=== PATIENT | female | born 1940 | race Caucasian/White ===

== ENCOUNTER 2018-03-22 12:59 | Inpatient (IN) ==
[2018-03-22] MEDS ORDERED: FUROSEMIDE 40 MG/4 ML VIAL IV ONE (13:31)
[2018-03-22 13:58] LABS: Basophils # (Auto) 0.1 K/mcL (0.0-0.3); Basophils % (Auto) 0.6 % (0.0-2.0); Eosinophils # (Auto) 0 K/mcL (0.0-0.7); Eosinophils % (Auto) 0.3 % (0.0-7.0); Granulocytes % (Auto) 82.3 % (38.0-78.0); Lymphocytes # (Auto) 1.2 K/mcL (1.5-4.8); Lymphocytes % (Auto) 11.7 % (15.5-49.0); Mean Cell Volume 86.3 fL (80.0-100.0); Mean Corpuscular HGB Conc 32.5 g/dL (31.0-36.0); Monocytes # (Auto) 0.5 K/mcL (0.1-0.9); Monocytes % (Auto) 5.1 % (1.0-12.0); Platelet Count 197 K/mcL (140-440); RBC 3.92 M/mcL (4.00-5.20); Red Cell Distribution Width 20.7 % (11.5-14.5)
[2018-03-22 14:22] LABS: ALT/SGPT 46 U/l (0-40); Albumin 4.1 gm/dL (3.2-5.2); Albumin/Globulin Ratio 1.9 (1.0-2.3); Alkaline Phosphatase 88 U/L (39-117); Blood Urea Nitrogen 48 mg/dl (8-23)
--- NOTE | 2018-03-22 14:34 | XRay Report ---
INDICATION: Dyspnea TECHNIQUE: PA and lateral upright chest x-ray COMPARISON: 12/19/2014, 12/17/2014, 01/22/2014 FINDINGS: Previous median sternotomy and probable coronary artery bypass procedure Mild cardiomegaly. Pulmonary vascularity is prominent consistent pulmonary congestion. No pulmonary edema. No parenchymal consolidation or focal abnormality. No pleural fluid. Bailee and mediastinum are negative. IMPRESSION: 1. Mild cardiomegaly 2. Findings consistent with pulmonary congestion. No pulmonary edema or focal infiltrate Interpreted and Authenticated by: Justin Jacobo 03/22/18
[2018-03-22] MEDS ORDERED: HYDROcodone/APAP 5/325MG TABLET PO ONE (14:56)
--- NOTE | 2018-03-22 15:08 | Emergency Department Note ---
SOB HPI - General Chief Complaint: Shortness of Breath/Dyspnea Stated Complaint: Shortness of breath, elevated potassium Time Seen by Provider: 03/22/18 13:14 Source: patient, family Mode of arrival: wheelchair Limitations: no limitations - History of Present Illness 77-year-old female with increasing swelling in her legs shortness of breath and weakness was seen at [facility] 5 days ago. They diagnosed her as having worsening heart failure by increased BNP and creatinine. They gave her steroids as well as increasing her furosemide. She has not gotten better but is decompensating worse. She reports diarrhea for the last 3-4 days. No fever. Apparently she had an appointment scheduled with Dr. Baumann later on today but Dr. Baumann sent her to the ER - Related Data Home Medications Medication Instructions Recorded Confirmed Montelukast [Singular] 10 mg PO HS 11/11/15 03/22/18 bupropion HCl SR 150 mg tablet,12 150 mg PO QDAY tab 04/06/17 03/22/18 hr sustained-release insulin lispro (U-100) 100 unit/mL See Label Instructions SUB-Q 04/07/17 subcutaneous solution .COMPLEX trazodone 50 mg tablet 50 mg PO HS tab 04/08/17 03/22/18 Insulin Glargine, Human [Lantus] 10 unit SQ BID 10/18/17 03/22/18 hydralazine 10 mg tablet 10 mg PO TID tab 10/18/17 03/22/18 hydrocodone 10 mg-acetaminophen 1 - 2 tab PO Q6HP PRN 10/18/17 03/22/18 325 mg tablet levothyroxine 25 mcg tablet 75 mcg PO QAMAC tab 10/18/17 03/22/18 pantoprazole 40 mg tablet,delayed 40 mg PO QAMAC 10/18/17 03/22/18 release polysaccharide iron complex 150 mg 150 mg PO BID cap 10/18/17 03/22/18 iron capsule carvedilol 3.125 mg tablet 6.25 mg PO BIDCC tab 01/19/18 03/22/18 Cetirizine [ZyrTEC] 10 mg PO DAILY 03/22/18 03/22/18 Furosemide [Lasix] 20 mg PO DAILY 03/22/18 03/22/18 Furosemide [Lasix] 40 mg PO DAILY@1600 03/22/18 03/22/18 Ipratropium/Albuterol [Duoneb] 3 ml NEB Q6HP PRN 03/22/18 03/22/18 Pregabalin [Lyrica] 75 mg PO HS 03/22/18 03/22/18 Vitamin D3 2,000 unit PO DAILY 03/22/18 03/22/18 Warfarin [Coumadin] 7.5 mg PO SUMOTUTHFRSA 03/22/18 03/22/18 Warfarin [Coumadin] 10 mg PO WE 03/22/18 03/22/18 predniSONE [Prednisone] 20 mg PO BID 03/22/18 03/22/18 Allergies Allergy/AdvReac Type Severity Reaction Status Date / Time GUIDO Inhibitors Allergy Severe Anaphylaxis Verified 03/22/18 13:05 valsartan [From DIOVAN] Allergy Severe TONGUE Verified 03/22/18 13:05 SWELLS Sulfa (Sulfonamide Allergy Mild Pain Verified 03/22/18 15:55 Antibiotics) morphine [MORPHINE] AdvReac Intermediate MAKES HER Verified 03/22/18 15:55 A LITTLE CRAZY Review of Systems All systems ED: reviewed and negative except as stated. Past Medical History - Past Medical History Attestation: Yes: The following information was validated with the patient. Medical history: Reports: atrial fibrillation, cancer (Renal), CHF, COPD, coronary artery disease, DM, GERD, hyperlipidemia, hypertension, renal disease, thyroid disease, other (Symptomatic hernia) Surgical history ED: Reports: appendectomy, cataract, coronary bypass (CABG), hysterectomy, knee replacement, orthopedic, other (Lumbar), other (eft kidney resection; partial colectomy for obstruction) - Social History smoking status: Former smoker Physical Exam No acute distress. Normocephalic atraumatic. Conjunctive are clear sclerae nonicteric. No nasal discharge or congestion. Oropharynx is pink and moist. Neck is supple without lymphadenopathy thyromegaly or carotid bruit. Heart is irregularly irregular rhythm. +2 radial pulse. Lungs are basically clear to auscultation bilaterally although she is short of breath with even mild exertion. I do not hear any wheezes rales or crackles. Abdomen is soft nontender nondistended. No peritoneal signs or guarding. +2 pedal edema tender. Worst on the left with mild erythema. Alert and oriented Limitations: no limitations Course Vital Signs Temperature 97.4 F 03/22/18 13:00 Pulse Rate 64 03/22/18 13:00 Respiratory Rate 22 03/22/18 13:00 Blood Pressure 193/95 03/22/18 13:00 Pulse Oximetry (%) 97 03/22/18 13:00 Temperature 97.2 F 03/23/18 03:24 Pulse Rate 56 L 03/23/18 03:24 Respiratory Rate 18 03/23/18 03:24 Blood Pressure 162/45 03/23/18 03:24 Pulse Oximetry (%) 96 03/23/18 03:24 Shortness of Breath/Dyspnea - Lab Data Lab results reviewed: Yes I reviewed the patient's lab results. Result diagrams: 03/23/18 03:30 03/23/18 03:30 Lab Results 03/22/18 03/22/18 03/22/18 Range/Units 13:26 13:26 13:26 WBC 10.0 (4.5-11.0) K/mcL RBC 3.92 L (4.00-5.20) M/mcL Hgb 11.0 L (12.0-15.0) g/dL Hct 33.8 L (36.0-48.0) % POC Hct 33.0 L (36.0-48.0) % MCV 86.3 (80.0-100.0) fL MCH 28.0 (26.0-34.0) pg MCHC 32.5 (31.0-36.0) g/dL RDW 20.7 H (11.5-14.5) % Plt Count 197 (140-440) K/mcL MPV 7.7 (7.4-10.4) fL Gran % 82.3 H (38.0-78.0) % Lymph % (Auto) 11.7 L (15.5-49.0) % [place] % (Auto) 5.1 (1.0-12.0) % Eos % (Auto) 0.3 (0.0-7.0) % Baso % (Auto) 0.6 (0.0-2.0) % Gran # 8.2 H (1.8-8.0) K/mcL Lymph # (Auto) 1.2 L (1.5-4.8) K/mcL [place] # (Auto) 0.5 (0.1-0.9) K/mcL Eos # (Auto) 0 (0.0-0.7) K/mcL Baso # (Auto) 0.1 (0.0-0.3) K/mcL PT 24.0 H (11.9-14.5) sec INR 2.1 H (0.9-1.1) VBG Lactic Acid (0.5-2.2) mmol/L POC Sodium 133 (133-145) mmol/L Sodium 134 (133-145) mmol/L POC Potassium 3.9 (3.3-5.1) mmol/L Potassium 4.2 (3.3-5.1) mmol/L POC Chloride 93 L (96-108) mmol/L Chloride 94 L (96-108) mmol/L Carbon Dioxide 25 (22-30) mmol/L POC Total CO2 28 (22-30) mmol/L Anion Gap 15.0 (8-16) POC BUN 47 H (8-23) mg/dl BUN 48 H (8-23) mg/dl Creatinine 1.4 H (0.6-1.1) mg/dl POC Creatinine 1.5 H (0.6-1.1) mg/dl GFR Calculation 36 Glucose 125 H (70-105) mg/dL POC Glucose 130 H (70-105) mg/dL Calcium 9.2 (8.6-10.4) mg/dl POC WB Ioniz Calcium 1.20 (1.16-1.32) mmol/L Magnesium (1.6-2.5) mg/dL Total Bilirubin 0.5 (0.0-1.0) mg/dL AST 34 (0-37) U/l ALT 46 H (0-40) U/l Alkaline Phosphatase 88 (39-117) U/L Troponin T (0-0.03) ng/ml NT-Pro-B Natriuret Pep (0-450) pg/ml Total Protein 6.3 (5.9-8.4) gm/dL Albumin 4.1 (3.2-5.2) gm/dL Globulin 2.2 (2.2-3.7) gm/dL Albumin/Globulin Ratio 1.9 (1.0-2.3) 03/22/18 03/22/18 03/22/18 Range/Units 13:26 13:26 13:44 WBC (4.5-11.0) K/mcL RBC (4.00-5.20) M/mcL Hgb (12.0-15.0) g/dL Hct (36.0-48.0) % POC Hct (36.0-48.0) % MCV (80.0-100.0) fL MCH (26.0-34.0) pg MCHC (31.0-36.0) g/dL RDW (11.5-14.5) % Plt Count (140-440) K/mcL MPV (7.4-10.4) fL Gran % (38.0-78.0) % Lymph % (Auto) (15.5-49.0) % [place] % (Auto) (1.0-12.0) % Eos % (Auto) (0.0-7.0) % Baso % (Auto) (0.0-2.0) % Gran # (1.8-8.0) K/mcL Lymph # (Auto) (1.5-4.8) K/mcL [place] # (Auto) (0.1-0.9) K/mcL Eos # (Auto) (0.0-0.7) K/mcL Baso # (Auto) (0.0-0.3) K/mcL PT (11.9-14.5) sec INR (0.9-1.1) VBG Lactic Acid 0.9 (0.5-2.2) mmol/L POC Sodium (133-145) mmol/L Sodium (133-145) mmol/L POC Potassium (3.3-5.1) mmol/L Potassium (3.3-5.1) mmol/L POC Chloride (96-108) mmol/L Chloride (96-108) mmol/L Carbon Dioxide (22-30) mmol/L POC Total CO2 (22-30) mmol/L Anion Gap (8-16) POC BUN (8-23) mg/dl BUN (8-23) mg/dl Creatinine (0.6-1.1) mg/dl POC Creatinine (0.6-1.1) mg/dl GFR Calculation Glucose (70-105) mg/dL POC Glucose (70-105) mg/dL Calcium (8.6-10.4) mg/dl POC WB Ioniz Calcium (1.16-1.32) mmol/L Magnesium 1.8 (1.6-2.5) mg/dL Total Bilirubin (0.0-1.0) mg/dL AST (0-37) U/l ALT (0-40) U/l Alkaline Phosphatase (39-117) U/L Troponin T 0.02 (0-0.03) ng/ml NT-Pro-B Natriuret Pep 28263.0 H (0-450) pg/ml Total Protein (5.9-8.4) gm/dL Albumin (3.2-5.2) gm/dL Globulin (2.2-3.7) gm/dL Albumin/Globulin Ratio (1.0-2.3) ABG shows pH 7.45 PCO2 44 PO2 of 71 Urinalysis [id number]-[id number] dipstick shows large amount of leukocytes moderate amount of blood specific gravity 1.005 - Radiology Data Radiology results reviewed: Yes I reviewed the patient's radiology results. Chest x-ray shows pulmonary vascular congestion - EKG Data EKG attestation: Yes I reviewed and interpreted this EKG. EKG results narrative: EKG shows atrial fibrillation with a rate of 76 right bundle branch block Disposition Pt seen by EMPLOYEE BENEFITS COORDINATOR/PA only: No Clinical Impression: Chronic atrial fibrillation Congestive heart failure Qualifiers: Heart failure type: unspecified Heart failure chronicity: acute on chronic Qualified Code(s): I50.9 - Heart failure, unspecified Summary: After initial workup it seems patient has symptomatic acute on chronic heart failure, decompensating. She has increased swelling in her legs, dyspnea on exertion, chest x-ray with pulmonary vascular congestion and her BNP is doubled. She is given an additional furosemide here in the ER. Suero not placed secondary to being able to get up for bedside commode. I discussed case with Dr. Campbell hospitalist, who agreed to accept patient in transfer for further care. She was also given her home hydrocodone dose for leg pain from the distention Disposition: Xfer As Inpt ([facility]) Condition: Serious
[2018-03-22] MEDS ORDERED: ACETAMINOPHEN 325 MG TABLET PO PRN (15:44)
[2018-03-22] MEDS ORDERED: MAGNESIUM SULFATE 2 GM/50 ML BAG IV PRN (15:44)
[2018-03-22] MEDS ORDERED: ONDANSETRON 4 MG/2 ML VIAL IV PRN (15:44)
[2018-03-22] MEDS ORDERED: DEXTROSE 31 GM ORAL.SUSP PO PRN (15:44)
[2018-03-22] MEDS ORDERED: DEXTROSE 50% 50 ML VIAL IV PRN (15:44)
[2018-03-22] MEDS ORDERED: traZODone HCL 50 MG TABLET PO PRN (15:44)
[2018-03-22] MEDS ORDERED: HYDROcodone/APAP 10/325MG TABLET PO PRN (15:44)
[2018-03-22] MEDS: ACETAMINOPHEN 1,000 MG/100 ML BOTTLE IV PRN (16:35)
[2018-03-22] MEDS: predniSONE 10 MG TABLET PO SCH (16:38)
[2018-03-22] MEDS: INSULIN LISPRO 1 UNIT/0.01 ML UNIT SQ SCH ×2 (17:22→21:04)
[2018-03-22] MEDS ORDERED: CARVEDILOL 6.25 MG TABLET PO SCH (17:30)
--- NOTE | 2018-03-22 17:55 | Internal Med History&Physical ---
Medical - H&P: [facility] Patient information: Note initiated : 03/22/18 at 5:48 pm Service Date, if different from initiated Date: [] Patient: Ольга Hernandez a 77 y/o F admitted on 03/22/18 for Shortness of breath , elevated potassium. Chief Complaint: [] Chief complaint: SOB History of present illness: Ms. Hernandez is a 77 year old F with a history of CKD, CAD status post CABG, CHF, COPD and active smoker who stopped smoking 5 days ago now presents to the ER with worsening dyspnea along with lower extremity swelling that has progressed to orthopnea along with difficulty ambulation over the last 1 week. Patient has a history of chronic lower extremity lymphedema and has been on Lasix. Despite being on diuretics has gained approximately 12-15 pounds in the last couple of weeks. She endorses to swelling has extended all the way up to her abdomen with increasing girth along with dyspnea on minimal exertion. She denies using [id number] NSAIDs or excessive salt intake. She denies recent sick contact, fever, diarrhea, nausea, chest pain or vomiting. She has attempted lower extremity stockings and compressive wraps which provided minimal relief. She also complains of bilateral lower extremity cramping pain. Initial workup in the ER was significant for pulmonary congestion on chest imaging along with generalized edema. Patient received Lasix and subsequently hospitalist service consulted. Patient carries a history of atrial fibrillation but currently rate controlled with right bundle branch on EKG. Echocardiogram reviewed from 02/14/18 revealed normal systolic function with concentric LVH, tricuspid regurgitation and moderate pulmonary hypertension. At the time of evaluation patient is in moderate discomfort. Able to talk in near full sentences. She endorses to history as above. Review of systems A 10 point review of systems was performed and is negative except for ones discussed above Medical - H&P: [facility] Medical history: Medical History (Last Reviewed 04/08/17 @ 10:46 by Carolyne Baumann MD) Persistent proteinuria (Chronic) Hyponatremia with decreased serum osmolality (Chronic) Secondary hyperparathyroidism of renal origin (Chronic) Vitamin D deficiency (Chronic) Anemia in stage 3 chronic kidney disease (Chronic) Hypertension in stage 3 chronic kidney disease due to type 2 diabetes mellitus ( Chronic) Renal failure (Chronic) Peripheral neuropathy (Chronic) Osteoarthritis (Chronic) Lumbar radiculopathy (Chronic) Hypertension (Chronic) Hyperlipidemia (Chronic) COPD exacerbation (Chronic) GERD (gastroesophageal reflux disease) (Chronic) Hip pain, bilateral (Chronic) Elevated erythrocyte sedimentation rate (Chronic) Hernia, umbilical (Chronic) Knee pain, bilateral (Chronic) correction prescription opiate use (Chronic) Murmur (Chronic) Bradycardia (Chronic) Lower extremity pain (Chronic) Urinary frequency (Chronic) Chronic depression (Chronic) Urge incontinence (Chronic) Abnormal findings on diagnostic imaging of lung (Chronic) Other specified hypothyroidism (Chronic) Pain of right hip joint (Chronic) Skin tear (Chronic) Hypertensive heart and chronic kidney disease with heart failure and stage 1 through stage 4 chronic kidney disease, or chronic kidney disease (Chronic) Psoriasis (Chronic) Chronic diastolic heart failure (Chronic) Edema of soft tissue of ankle region (Chronic) Varicose veins of both lower extremities (Chronic) Tobacco use (Chronic) Iron deficiency anemia (Chronic) Arthritis (Chronic) Chronic atrial fibrillation (Chronic) History of Coumadin therapy (Chronic) CAD (coronary artery disease) (Chronic) Idiopathic osteoarthritis (Chronic) Diabetic peripheral neuropathy (Chronic) Dystrophia unguium (Chronic) PVD (peripheral vascular disease) with claudication (Chronic) DM (diabetes mellitus), 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) Diabetes mellitus with peripheral circulatory disorder (Chronic) Chronic kidney disease, stage III (moderate) (Chronic) Hyponatremia (Chronic) Urinary tract infection (Chronic) Weakness (Chronic) Melena (Chronic) Anemia (Chronic) History of open heart surgery (Chronic ~1992) Mass of joint of left hip (Chronic) Surgical history: Past Surgical History (Last Reviewed 04/08/17 @ 10:46 by Carolyne Baumann MD) History of appendectomy (Chronic) History of cataract surgery (Chronic) History of cholecystectomy (Chronic) History of hysterectomy (Chronic) History of knee surgery (Chronic) History of lumbar surgery (Chronic) History of nephrectomy (Chronic) History of surgery (Chronic ~1994) History of surgery (Chronic) History of surgery (Chronic) Pertinent family history: Family History (Last Reviewed 04/08/17 @ 10:46 by Carolyne Baumann MD) Mother Diabetes Father Melanoma Social history: marital status: occupational status: retired smoking status: Current every day smoker. Quit smoking 5 days ago alcohol intake frequency: does not drink substance use type: does not use Smoking status: Current every day smoker (stop smoking 5 days ago) Have you smoked in the last 12 months: Yes Medical - H&P: Meds Home Medications Medication Instructions Recorded Confirmed Type Montelukast [Singular] 10 mg PO HS 11/11/15 03/22/18 History bupropion HCl SR 150 mg tablet,12 150 mg PO QDAY tab 04/06/17 03/22/18 History hr sustained-release insulin lispro (U-100) 100 unit/mL See Label Instructions SUB-Q 04/07/17 History subcutaneous solution .COMPLEX trazodone 50 mg tablet 50 mg PO HS tab 04/08/17 03/22/18 History Insulin Glargine, Human [Lantus] 10 unit SQ BID 10/18/17 03/22/18 History hydralazine 10 mg tablet 10 mg PO TID tab 10/18/17 03/22/18 History hydrocodone 10 mg-acetaminophen 1 - 2 tab PO Q6HP PRN 10/18/17 03/22/18 History 325 mg tablet levothyroxine 25 mcg tablet 75 mcg PO QAMAC tab 10/18/17 03/22/18 History pantoprazole 40 mg tablet,delayed 40 mg PO QAMAC 10/18/17 03/22/18 History release polysaccharide iron complex 150 mg 150 mg PO BID cap 10/18/17 03/22/18 History iron capsule carvedilol 3.125 mg tablet 6.25 mg PO BIDCC tab 01/19/18 03/22/18 History Cetirizine [ZyrTEC] 10 mg PO DAILY 03/22/18 03/22/18 History Furosemide [Lasix] 20 mg PO DAILY 03/22/18 03/22/18 History Furosemide [Lasix] 40 mg PO DAILY@1600 03/22/18 03/22/18 History Ipratropium/Albuterol [Duoneb] 3 ml NEB Q6HP PRN 03/22/18 03/22/18 History Pregabalin [Lyrica] 75 mg PO HS 03/22/18 03/22/18 History Vitamin D3 2,000 unit PO DAILY 03/22/18 03/22/18 History Warfarin [Coumadin] 7.5 mg PO SUMOTUTHFRSA 03/22/18 03/22/18 History Warfarin [Coumadin] 10 mg PO WE 03/22/18 03/22/18 History predniSONE [Prednisone] 20 mg PO BID 03/22/18 03/22/18 History Allergies Allergy/AdvReac Type Severity Reaction Status Date / Time GUIDO Inhibitors Allergy Severe Anaphylaxis Verified 03/22/18 13:05 valsartan [From DIOVAN] Allergy Severe TONGUE Verified 03/22/18 13:05 SWELLS Sulfa (Sulfonamide Allergy Mild Pain Verified 03/22/18 15:55 Antibiotics) morphine [MORPHINE] AdvReac Intermediate MAKES HER Verified 03/22/18 15:55 A LITTLE CRAZY Medical - H&P: Exam - Constitutional Vitals: Temp Pulse Resp BP Pulse Ox 97.4 F 54 L 21 183/65 98 03/22/18 15:54 03/22/18 15:54 03/22/18 15:54 03/22/18 15:54 03/22/18 15:54 General appearance: moderate distress, obese Exam: Alert oriented labored breathing oral cavity dry head normocephalic Neck no lymphadenopathy Eye movements normal S1 and S2 irregular rhythm ESM grade 1 Late inspiratory crackles bilateral chest Abdomen soft nontender Lower extremity bilateral lymphedema Calf tenderness positive Skin no suspicious lesion Joint degenerative changes Psych alert cooperative Neuro nonfocal Medical - H&P: Reslt - Labs CBC & Chem 7: 03/23/18 03:30 03/23/18 03:30 Labs: Short CBC 03/22/18 Range/Units 13:26 WBC 10.0 (4.5-11.0) K/mcL Hgb 11.0 L (12.0-15.0) g/dL Hct 33.8 L (36.0-48.0) % Plt Count 197 (140-440) K/mcL BMP 03/22/18 13:26 Sodium 134 Potassium 4.2 Chloride 94 L Carbon Dioxide 25 BUN 48 H Creatinine 1.4 H Glucose 125 H Calcium 9.2 Cardiac Enzymes 03/22/18 Range/Units 13:26 Troponin T 0.02 (0-0.03) ng/ml Liver Function 03/22/18 Range/Units 13:26 Total Bilirubin 0.5 (0.0-1.0) mg/dL AST 34 (0-37) U/l ALT 46 H (0-40) U/l Alkaline Phosphatase 88 (39-117) U/L Albumin 4.1 (3.2-5.2) gm/dL Medical - H&P: A/P (1) Congestive heart failure Current visit: Yes Status: Acute * Acute decompensated heart failure diastolic dysfunction with concentric LVH on echo. Pulmonary edema on chest imaging. Secondary to poorly controlled hypertension. Continue diuretics and blood pressure control * Lower extremity lymphedema secondary to pulmonary hypertension-continue diuresis, limb elevation, compressive wraps * Poorly controlled hypertension-continue antihypertensives, optimize blood pressure management * History of COPD secondary to smoking-continue bronchodilators * History smoking-recently quit. Continue nicotine patch * Atrial fibrillation rate controlled on Coreg * DM type II on basal prandial insulin * Anticoagulation on Coumadin. INR therapeutic * Degenerative joint disease on oral opioids * History of CAD on Coreg/spironolactone and hydralazine * Anxiety disorder on bupropion * Hypothyroidism on thyroxine * Neuropathy on Lyrica * Full code Plan * Continue aggressive diuresis * Optimize blood pressure control * Nicotine patch * Pre-existing medical condition management as above * Physical therapy Medical - H&P: Qual - Stroke Symptom Onset Unknown: No - VTE Deep Vein Thrombosis/Pulmonary Embolism Present on Admission: No
[2018-03-22] MEDS ORDERED: HYDROcodone/APAP 10/325MG TABLET PO ONE (19:16)
[2018-03-22] MEDS: INSULIN GLARGINE, HUMAN 1 UNIT/0.01 ML SQ SCH (21:04)
[2018-03-22] MEDS: traZODone HCL 50 MG TABLET PO SCH (21:05)
[2018-03-22] MEDS: DOCUSATE SODIUM 100 MG CAPSULE PO SCH (21:05)
[2018-03-22] MEDS: PREGABALIN 75 MG CAPSULE PO SCH (21:05)
[2018-03-22] MEDS: hydrALAZINE 10 MG TABLET PO SCH (21:05)
[2018-03-22] MEDS: SENNOSIDES/DOCUSATE SODIUM 1 TAB TABLET PO SCH (21:05)
[2018-03-22] MEDS: CARVEDILOL 6.25 MG TABLET PO SCH (21:06)
[2018-03-22] MEDS: MONTELUKAST 10 MG TABLET PO SCH (21:34)
[2018-03-22] MEDS: FUROSEMIDE 40 MG/4 ML VIAL IV SCH (21:48)
[2018-03-22] MEDS: 0.9 % SODIUM CHLORIDE 10 ML SYRINGE IV SCH (21:49)
[2018-03-22 22:55] LABS: Appearance,Urine HAZY; Bacteria,Urine FEW /hpf (0); Bilirubin,Urine NEG (NEG); Color,Urine YELLOW; Glucose,Urine (UA) NEGATIVE (NEG); Leukocyte Esterase,Urine 75 /uL (NEG); Mucus,Urine FEW /hpf (0); Protein,Urine 100 mg/dL (NEG); Specific Gravity,Urine 1.009 (1.000-1.035); Urine Blood 0.03 mg/dL (<0.03); Urine RBC 2 /hpf (0-1); Urine Squamous Epithelial Cell 2 /hpf (0-4); Urine WBC 12 /hpf (0-4); Urobilinogen,Urine NEG (NEG)
[2018-03-22] MEDS: HYDROcodone/APAP 10/325MG TABLET PO PRN (23:20)
[2018-03-22] MEDS ORDERED: IPRATROPIUM/ALBUTEROL 3 ML AMPUL.NEB NEB PRN (23:55)
[2018-03-22] MEDS ORDERED: IPRATROPIUM/ALBUTEROL 3 ML AMPUL.NEB NEB ONE (23:59)
[2018-03-23] MEDS: ACETAMINOPHEN 1,000 MG/100 ML BOTTLE IV PRN (02:30)
[2018-03-23] MEDS: HYDROcodone/APAP 10/325MG TABLET PO PRN ×3 (03:10→17:48)
[2018-03-23 05:30] LABS: Mean Cell Volume 87.5 fL (80.0-100.0); Mean Corpuscular HGB Conc 31.8 g/dL (31.0-36.0); Mean Corpuscular Hemoglobin 27.9 pg (26.0-34.0); Platelet Count 184 K/mcL (140-440); Red Cell Distribution Width 20.6 % (11.5-14.5)
[2018-03-23] MEDS: FUROSEMIDE 40 MG/4 ML VIAL IV SCH ×3 (05:42→21:16)
[2018-03-23] MEDS: 0.9 % SODIUM CHLORIDE 10 ML SYRINGE IV SCH ×3 (05:42→21:16)
[2018-03-23 05:54] LABS: ALT/SGPT 38 U/l (0-40); Albumin 3.8 gm/dL (3.2-5.2); Albumin/Globulin Ratio 1.9 (1.0-2.3); Alkaline Phosphatase 79 U/L (39-117); Bilirubin,Direct < 0.2 mg/dL (0.0-0.3); Blood Urea Nitrogen 47 mg/dl (8-23); Gamma Glutamyl Transpeptidase 86 U/L (5-36); Uric Acid 9.4 mg/dL (2.5-8.0)
[2018-03-23 07:24] LABS: Anisocytosis 1+ (NONE SEEN); Lymphocytes % 11 % (15-49); Monocytes % (Manual) 7 % (1-12); Platelet Estimate NORMAL (NORMAL); RBC Morphology ABNORM (NORMAL); Segmented Neutrophils % 82 % (38-78)
[2018-03-23] MEDS: INSULIN LISPRO 1 UNIT/0.01 ML UNIT SQ SCH ×4 (07:26→21:15)
[2018-03-23] MEDS: PANTOPRAZOLE 40 MG TABLET PO SCH (07:27)
[2018-03-23] MEDS: CARVEDILOL 6.25 MG TABLET PO SCH ×2 (07:27→17:20)
[2018-03-23] MEDS: predniSONE 10 MG TABLET PO SCH ×2 (07:27→17:20)
[2018-03-23] MEDS: LEVOTHYROXINE 25 MCG TABLET PO SCH (07:27)
[2018-03-23] MEDS: buPROPion 150 MG TAB.SR.12H PO SCH (09:21)
[2018-03-23] MEDS: hydrALAZINE 10 MG TABLET PO SCH ×3 (09:21→21:03)
[2018-03-23] MEDS: INSULIN GLARGINE, HUMAN 1 UNIT/0.01 ML SQ SCH ×2 (09:21→21:15)
[2018-03-23] MEDS: TAMSULOSIN 0.4 MG CAPSULE PO SCH (09:21)
[2018-03-23] MEDS: MAGNESIUM OXIDE 400 MG TABLET PO SCH (09:21)
[2018-03-23] MEDS: DOCUSATE SODIUM 100 MG CAPSULE PO SCH ×2 (09:21→21:03)
[2018-03-23] MEDS: MULTIVIT,THER IRON,CA,FA & MIN 1 TABLET PO SCH (09:21)
--- NOTE | 2018-03-23 09:47 | Ultrasound Report ---
CLINICAL INFORMATION: Left leg pain and swelling TECHNIQUE: Grayscale and color flow Doppler spectral imaging COMPARISON: None. FINDINGS: There is an appearance consistent with chronic clot in the mid left superficial femoral vein. This does not appear to be completely obstructing. There is normal flow caudally and cephalad. Proximal left superficial femoral vein and distal left superficial femoral vein are negative. Left common femoral vein is negative. Left popliteal vein is negative. Calf veins are negative. Greater and lesser saphenous veins are negative. IMPRESSION: 1. Appearance consistent with chronic clot in the left mid superficial femoral vein. 2. Examination is otherwise negative Interpreted and Authenticated by: Justin Jacobo 03/23/18
[2018-03-23] MEDS ORDERED: NICOTINE 21 MG PATCH TOPICAL SCH (10:00)
--- NOTE | 2018-03-23 13:58 | Internal Med Progress Note ---
Medical - PN: Subj Patient information: Note initiated : 03/23/18 at 1:56 pm Service Date, if different from initiated Date: [] Patient: Ольга Hernandez a 77 y/o F admitted on 03/22/18 for SOB, Elevated Potassium/Congestive Heart Failure. Chief Complaint: [] Interval history: Ms. Hernandez is a 77 year old F with a history of CKD, CAD status post CABG, CHF, COPD and active smoker who stopped smoking 5 days ago now presents to the ER with worsening dyspnea along with lower extremity swelling that has progressed to orthopnea along with difficulty ambulation over the last 1 week. Patient has a history of chronic lower extremity lymphedema and has been on Lasix. Despite being on diuretics has gained approximately 12-15 pounds in the last couple of weeks. She endorses to swelling has extended all the way up to her abdomen with increasing girth along with dyspnea on minimal exertion. She denies using [id number] NSAIDs or excessive salt intake. She denies recent sick contact, fever, diarrhea, nausea, chest pain or vomiting. She has attempted lower extremity stockings and compressive wraps which provided minimal relief. She also complains of bilateral lower extremity cramping pain. Initial workup in the ER was significant for pulmonary congestion on chest imaging along with generalized edema. Patient received Lasix and subsequently hospitalist service consulted. Patient carries a history of atrial fibrillation but currently rate controlled with right bundle branch on EKG. Echocardiogram reviewed from 02/14/18 revealed normal systolic function with concentric LVH, tricuspid regurgitation and moderate pulmonary hypertension. At the time of evaluation patient is in moderate discomfort. Able to talk in near full sentences. She endorses to history as above. 03/23- patient doing well. No overnight events. No concerns per staff except for patient complaining of lower extremity pain. Doppler lower extremity consistent with chronic clot in left superficial femoral vein. On anticoagulation. INR therapeutic. No fever chills nausea vomiting. Diuresing well. Over 2500 cc net negative fluid balance. Improved dyspnea. - Constitutional Vitals: Vital Signs Temp Pulse Resp BP Pulse Ox 98.2 F 72 20 118/46 97 03/23/18 12:00 03/23/18 12:00 03/23/18 12:00 03/23/18 12:00 03/23/18 12:00 Period Temp Pulse Resp BP Sys/Marinelli Pulse Ox Last 24 Hr 97.2 F-98.8 F 54-85 18-25 118-192/45-80 95-99 Intake and Output 03/22/18 03/23/18 03/23/18 21:59 05:59 13:59 Intake Total 460 / 460 460 / 460 480 / 480 Output Total 650 / 650 1650 / 1650 800 / 800 Balance -190 / -190 -1190 / -1190 -320 / -320 Weight 193 lb 8 oz 193 lb 8 oz Intake & Output: Intake & Output 03/22/18 03/23/18 03/23/18 21:59 05:59 13:59 Intake Total 460 / 460 460 / 460 480 / 480 Output Total 650 / 650 1650 / 1650 800 / 800 Balance -190 / -190 -1190 / -1190 -320 / -320 Weight 193 lb 8 oz 193 lb 8 oz Intake: IV 100 / 100 100 / 100 Oral 360 / 360 360 / 360 480 / 480 Output: Void Amount 650 / 650 1650 / 1650 800 / 800 Other: Meal Sandwhich sherbert Breakfast Percent of Meal Consumed 100% 100% Feeding Ability Independent Independent # Voids 1 1 General appearance: no acute distress, obese Exam: Nonlabored breathing no anxiety Alert oriented Lymphedema much improved Medical - PN: Obj Da - Labs CBC & Chem 7: 03/23/18 03:30 03/23/18 03:30 Labs: Abnormal Lab Results 03/23/18 03/23/18 03/23/18 03:30 03:30 03:30 RBC 3.60 L Hgb 10.0 L Hct 31.5 L POC Hct RDW 20.6 H Gran % Lymph % (Auto) Gran # Lymph # (Auto) Seg Neutrophils % 82 H Lymphocytes % 11 L RBC Morphology Abnorm A Anisocytosis 1+ A PT 24.9 H INR 2.2 H Sodium 132 L POC Chloride Chloride 91 L POC BUN BUN 47 H Creatinine 1.3 H POC Creatinine Glucose 280 H POC Glucose Uric Acid 9.4 H GGT 86 H ALT Lactate Dehydrogenase 285 H NT-Pro-B Natriuret Pep Total Protein 5.8 L Globulin 2.0 L Urine Protein Urine Occult Blood Ur Leukocyte Esterase Urine RBC Urine WBC Urine Bacteria 03/22/18 03/22/18 03/22/18 16:00 13:26 13:26 RBC Hgb Hct POC Hct RDW Gran % Lymph % (Auto) Gran # Lymph # (Auto) Seg Neutrophils % Lymphocytes % RBC Morphology Anisocytosis PT 24.0 H INR 2.1 H Sodium POC Chloride Chloride POC BUN BUN Creatinine POC Creatinine Glucose POC Glucose Uric Acid GGT ALT Lactate Dehydrogenase NT-Pro-B Natriuret Pep 43382.0 H Total Protein Globulin Urine Protein 100 A Urine Occult Blood 0.03 A Ur Leukocyte Esterase 75 A Urine RBC 2 H Urine WBC 12 H Urine Bacteria Few A 03/22/18 03/22/18 13:26 13:26 RBC 3.92 L Hgb 11.0 L Hct 33.8 L POC Hct 33.0 L RDW 20.7 H Gran % 82.3 H Lymph % (Auto) 11.7 L Gran # 8.2 H Lymph # (Auto) 1.2 L Seg Neutrophils % Lymphocytes % RBC Morphology Anisocytosis PT INR Sodium POC Chloride 93 L Chloride 94 L POC BUN 47 H BUN 48 H Creatinine 1.4 H POC Creatinine 1.5 H Glucose 125 H POC Glucose 130 H Uric Acid GGT ALT 46 H Lactate Dehydrogenase NT-Pro-B Natriuret Pep Total Protein Globulin Urine Protein Urine Occult Blood Ur Leukocyte Esterase Urine RBC Urine WBC Urine Bacteria Meds: Medications Acetaminophen (Tylenol) 650 mg PO Q4-6HP PRN PRN Reason: PAIN/FEVER > 101 Hydrocodone Bitart/Acetaminophen (Rush 10/325mg) 2 tab PO Q4-6HP PRN PRN Reason: PAIN LEVEL 3-6 Last Admin: 03/23/18 11:27 Dose: 2 tab Albuterol/Ipratropium (Duoneb) 3 ml NEB Q6HP PRN PRN Reason: Shortness Of Breath Bupropion HCl (Wellbutrin Sr) 150 mg PO QDAY [facility] Last Admin: 03/23/18 09:21 Dose: 150 mg Carvedilol (Coreg) 12.5 mg PO BIDCC [facility] Last Admin: 03/23/18 07:27 Dose: 12.5 mg Dextrose (Dextrose 50%) 0 ml IV UD PRN PRN Reason: Hypoglycemia Diagnostic Test (Pha) (Accu-Chek) 1 each FS ACHS [facility] Last Admin: 03/23/18 11:30 Dose: 1 each Docusate Sodium (Colace) 100 mg PO BID [facility] Last Admin: 03/23/18 09:21 Dose: 100 mg Furosemide (Lasix) 40 mg IV Q8 [facility] Last Admin: 03/23/18 05:42 Dose: 40 mg Glucose (Insta-Glucose) 15 gm PO PRN PRN PRN Reason: Hypoglycemia Hydralazine HCl (Apresoline) 10 mg PO TID [facility] Last Admin: 03/23/18 09:21 Dose: 10 mg Magnesium Sulfate (Magnesium Sulfate) 2 gm in 50 mls @ 50 mls/hr IV UD PRN PRN Reason: MG = or < 1.7 Acetaminophen (Ofirmev) 1,000 mg in 100 mls @ 200 mls/hr IV Q6HP PRN PRN Reason: PAIN/FEVER > 101 Last Infusion: 03/23/18 05:02 Dose: Infused Insulin Glargine (Lantus) 10 unit SQ BID [facility] Last Admin: 03/23/18 09:21 Dose: 10 unit Insulin Human Lispro (Humalog) 0 unit SQ ACHS [facility] PRN Reason: Protocol Last Admin: 03/23/18 11:34 Dose: 2 unit Iron Carb/Multivit/Courtroom Reporter/Folic Acid (Multivitamin W/Minerals) 1 tab PO DAILY [facility] Last Admin: 03/23/18 09:21 Dose: 1 tab [facility]othyroxine [facility]) [facility] Last Admin: 03/23/18 07:27 Dose: 75 mcg Magnesium Oxide (Magnesium Oxide) 400 mg PO DAILY [facility] Last Admin: 03/23/18 09:21 Dose: 400 mg Montelukast Sodium (Singular) 10 mg PO [facility] Last Admin: 03/22/18 21:34 Dose: 10 mg Nicotine (Nicoderm) 21 mg TOPICAL DAILY@1000 [facility] Last Admin: 03/23/18 09:21 Dose: 21 mg Ondansetron HCl (Zofran) 4 mg IV Q4-6HP PRN PRN Reason: Nausea And Vomiting Pantoprazole Sodium (Protonix) 40 mg PO QAMAC [facility] Last Admin: 03/23/18 07:27 Dose: 40 mg Prednisone (Prednisone) 10 mg PO BIDCC [facility] Last Admin: 03/23/18 07:27 Dose: 10 mg Pregabalin (Lyrica) 75 mg PO [facility] Last Admin: 03/22/18 21:05 Dose: 75 mg Senna/Docusate Sodium (Senna Plus Tablet) 1 tab PO [facility] Last Admin: 03/22/18 21:05 Dose: 1 tab Sodium Chloride (Saline Flush) 10 ml IV Q8 [facility] Last Admin: 03/23/18 05:42 Dose: 10 ml Tamsulosin HCl (Flomax) 0.4 mg PO QDAY [facility] Last Admin: 03/23/18 09:21 Dose: 0.4 mg Trazodone HCl (Desyrel) 50 mg PO HS [facility] Last Admin: 03/22/18 21:05 Dose: 50 mg Warfarin Sodium (Coumadin Per Pharmacy) 1 order PO UD [facility] Medical - PN: A/P - Time Spent With Patient Total time spent is greater than 50% in coordination of care (as documented) at patient's floor/unit and/or counseling patient: 25 - 35 minutes (1) Congestive heart failure Status: Acute Assessment and plan: * Acute decompensated heart failure with pulmonary edema- diastolic dysfunction with concentric LVH on echo 02/15/18. Clinically improving with diuresis and blood pressure control. * Lower extremity lymphedema secondary to pulmonary hypertension-improving with diuresis * Poorly controlled hypertension -systolic around 120. Continue antihypertensives. * History of COPD secondary to lifelong smoking continue bronchodilators * Superficial femoral vein thrombosis-on anticoagulation * History of tobacco dependence -Continue nicotine patch. Patient quit smoking 5 days ago * Atrial fibrillation rate controlled on Coreg * DM type II on basal prandial insulin * Anticoagulation on Coumadin. INR 2.1 * Degenerative joint disease -pain controlled on oral opioids * History of CAD on Coreg/spironolactone and hydralazine * Anxiety disorder on bupropion * Hypothyroidism on thyroxine * Neuropathy on Lyrica * Full code Plan * Continue diuresis * Physical therapy * Nicotine patch * Continue pre-existing medical condition management as above * Possible discharge in 24 hours Current Visit: Yes Medical - PN: Qual - Stroke Symptom Onset Unknown: No - VTE Deep Vein Thrombosis/Pulmonary Embolism Present on Admission: No
[2018-03-23] MEDS ORDERED: WARFARIN 5 MG TABLET PO SCH (15:00)
[2018-03-23] MEDS: PREGABALIN 75 MG CAPSULE PO SCH (21:03)
[2018-03-23] MEDS: traZODone HCL 50 MG TABLET PO SCH (21:03)
[2018-03-23] MEDS: MONTELUKAST 10 MG TABLET PO SCH (21:03)
[2018-03-23] MEDS: SENNOSIDES/DOCUSATE SODIUM 1 TAB TABLET PO SCH (21:03)
[2018-03-24] MEDS: HYDROcodone/APAP 10/325MG TABLET PO PRN (01:30)
[2018-03-24] MEDS: FUROSEMIDE 40 MG/4 ML VIAL IV SCH (05:29)
[2018-03-24] MEDS: 0.9 % SODIUM CHLORIDE 10 ML SYRINGE IV SCH (05:30)
[2018-03-24 06:13] LABS: ALT/SGPT 32 U/l (0-40); Albumin 3.8 gm/dL (3.2-5.2); Albumin/Globulin Ratio 1.7 (1.0-2.3); Alkaline Phosphatase 79 U/L (39-117); Bilirubin,Direct < 0.2 mg/dL (0.0-0.3); Blood Urea Nitrogen 52 mg/dl (8-23); Gamma Glutamyl Transpeptidase 93 U/L (5-36); Uric Acid 9.6 mg/dL (2.5-8.0)
[2018-03-24 06:19] LABS: Mean Cell Volume 86.6 fL (80.0-100.0); Mean Corpuscular HGB Conc 32.3 g/dL (31.0-36.0); Platelet Count 179 K/mcL (140-440); RBC 3.85 M/mcL (4.00-5.20); Red Cell Distribution Width 20.6 % (11.5-14.5)
--- NOTE | 2018-03-24 07:43 | Discharge Summary ---
Medical - DS: Prov Patient information: Note initiated : 03/24/18 at 7:38 am Service Date, if different from initiated Date: [] Patient: Ольга Hernandez 77 y/o F admitted on 03/22/18 for SOB, Elevated Potassium/Congestive Heart Failure. Chief Complaint: [] Date of admission: 03/22/18 15:38 Discharge date: 03/24/18 Primary care physician: Jazmin Bonner Consults: 03/22/18 15:07 Consult to Physician [CONS] Stat Comment: Consulting Provider: Jarad Campbell Reason For Exam: Physician to Consult Medical - DS: Meds - Discharge Medications Prescriptions: amLODIPine BESYLATE [Norvasc] 2.5 mg PO DAILY #30 tab Cefdinir 300 mg PO BID #10 cap Active and Home Medications: Home Medications Montelukast [Singular] 10 mg PO HS 11/11/15 [History Confirmed 03/22/18 Last Taken Unknown] bupropion HCl SR 150 mg tablet,12 hr sustained-release 150 mg PO QDAY tab 04/06 [History Confirmed 03/22/18 Last Taken Unknown] insulin lispro (U-100) 100 unit/mL subcutaneous solution See Label Instructions SUB-Q .COMPLEX 04/07/17 [History Confirmed 03/22/18 Last Taken Unknown] trazodone 50 mg tablet 50 mg PO HS tab 04/08/17 [History Confirmed 03/22/18 Last Taken Unknown] Insulin Glargine, Human [Lantus] 10 unit SQ BID 10/18/17 [History Confirmed Last Taken Unknown] hydralazine 10 mg tablet 10 mg PO TID tab 10/18/17 [History Confirmed 03/22/18 Last Taken Unknown] hydrocodone 10 mg-acetaminophen 325 mg tablet 1 - 2 tab PO Q6HP PRN 10/18/17 [ History Confirmed 03/22/18 Last Taken Unknown] levothyroxine 25 mcg tablet 75 mcg PO QAMAC tab 10/18/17 [History Confirmed Last Taken Unknown] pantoprazole 40 mg tablet,delayed release 40 mg PO QAMAC 10/18/17 [History Confirmed 03/22/18 Last Taken Unknown] polysaccharide iron complex 150 mg iron capsule 150 mg PO BID cap 10/18/17 [ History Confirmed 03/22/18 Last Taken Unknown] carvedilol 3.125 mg tablet 6.25 mg PO BIDCC tab 01/19/18 [History Confirmed Last Taken Unknown] Cetirizine [Zyrtec] 10 mg PO DAILY 03/22/18 [History Confirmed 03/22/18 Last Taken Unknown] Furosemide [Lasix] 20 mg PO DAILY 03/22/18 [History Confirmed 03/22/18 Last Taken Unknown] Furosemide [Lasix] 40 mg PO DAILY@1600 03/22/18 [History Confirmed 03/22/18 Last Taken Unknown] Ipratropium/Albuterol [Duoneb] 3 ml NEB Q6HP PRN 03/22/18 [History Confirmed Last Taken Unknown] Pregabalin [Lyrica] 75 mg PO HS 03/22/18 [History Confirmed 03/22/18 Last Taken Unknown] Vitamin D3 2,000 unit PO DAILY 03/22/18 [History Confirmed 03/22/18 Last Taken Unknown] Warfarin [Coumadin] 7.5 mg PO SUMOTUTHFRSA 03/22/18 [History Confirmed 03/22/18 Last Taken Unknown] Warfarin [Coumadin] 10 mg PO WE 03/22/18 [History Confirmed 03/22/18 Last Taken Unknown] predniSONE [Prednisone] 20 mg PO BID 03/22/18 [History Confirmed 03/22/18 Last Taken Unknown] Cefdinir 300 mg PO BID #10 cap 03/24/18 [Rx Last Taken Unknown] Medical - DS: Hosp Hospital course: Discharge diagnosis * Acute decompensated heart failure with pulmonary edema- diastolic dysfunction with concentric LVH on echo 02/15/18. Clinically resolved with aggressive diuresis over 4000 cc net negative * Lower extremity lymphedema secondary to pulmonary resolved with diuresis * Acute cystitis gram-negative svetlana on cultures . Continue 5 days oral cephalosporin * Poorly controlled hypertension -systolic variable between 120-180. Start amlodipine 2.5 milligram in addition to home medications. Follow up with primary care physician for outpatient optimization of hypertension * History of COPD secondary to lifelong smoking continue bronchodilators * Superficial femoral vein thrombosis-on anticoagulation. INR therapeutic * History of tobacco dependence -Continue nicotine patch. Patient quit smoking 5 days ago * Atrial fibrillation rate controlled on Coreg * DM type II on basal prandial insulin * Anticoagulation on Coumadin. INR 2.1 * Degenerative joint disease -pain controlled on oral opioids * History of CAD on Coreg/spironolactone and hydralazine * Anxiety disorder on bupropion * Hypothyroidism on thyroxine * Neuropathy on Lyrica Brief hospital course Ms. Hernandez is a 77 year old F with a history of CKD, CAD status post CABG, CHF, COPD and active smoker who stopped smoking 5 days ago now presents to the ER with worsening dyspnea along with lower extremity swelling that has progressed to orthopnea along with difficulty ambulation over the last 1 week. Patient has a history of chronic lower extremity lymphedema and has been on Lasix. Despite being on diuretics has gained approximately 12-15 pounds in the last couple of weeks. She endorses to swelling has extended all the way up to her abdomen with increasing girth along with dyspnea on minimal exertion. She denies using [id number] NSAIDs or excessive salt intake. She denies recent sick contact, fever, diarrhea, nausea, chest pain or vomiting. She has attempted lower extremity stockings and compressive wraps which provided minimal relief. She also complains of bilateral lower extremity cramping pain. Initial workup in the ER was significant for pulmonary congestion on chest imaging along with generalized edema. Patient received Lasix and subsequently hospitalist service consulted. Patient carries a history of atrial fibrillation but currently rate controlled with right bundle branch on EKG. Echocardiogram reviewed from 02/14/18 revealed normal systolic function with concentric LVH, tricuspid regurgitation and moderate pulmonary hypertension. At the time of evaluation patient is in moderate discomfort. Able to talk in near full sentences. She endorses to history as above. 03/23- patient doing well. No overnight events. No concerns per staff except for patient complaining of lower extremity pain. Doppler lower extremity consistent with chronic clot in left superficial femoral vein. On anticoagulation. INR therapeutic. No fever chills nausea vomiting. Diuresing well. Over 2500 cc net negative fluid balance. Improved dyspnea. 03/24 patient doing well. Diuresed over 4000 cc negative. No overnight events. Fever chills or worsening shortness of breath. Orthopnea and lymphedema resolved. Urine culture gram-negative svetlana along with leukoesterase and pyuria. Discharging on 5 days oral cephalosporin. Continue daily weights and take additional 40 mg of Lasix if weight gain is over 4 pounds at baseline. Follow- up instruction medication recommendations as below Discharge diagnosis: . - Time Spent with Patient Total time spent providing and/or coordinating discharge services: Greater than 30 minutes Medical - DS: Exam - Constitutional Vitals: Vital Signs Temp Pulse Pulse Pulse Resp BP BP 03/24/18 04:00 97.6 F 62 20 183/58 03/24/18 00:00 97.2 F 64 64 20 175/60 03/23/18 21:40 76 18 03/23/18 20:00 97.4 F 63 18 114/50 03/23/18 16:00 97.2 F 60 18 144/43 03/23/18 12:00 98.2 F 72 20 118/46 03/23/18 08:00 98.0 F 60 20 176/66 Pulse Ox 03/24/18 04:00 03/24/18 00:00 96 03/23/18 21:40 98 03/23/18 20:00 98 03/23/18 16:00 96 03/23/18 12:00 97 03/23/18 08:00 98 Intake and Output 03/23/18 03/24/18 03/24/18 21:59 05:59 13:59 Intake Total 1200 / 1200 650 / 650 Output Total 2300 / 2300 2950 / 2950 Balance -1100 / -1100 -2300 / -2300 Intake: Oral 1200 / 1200 650 / 650 Output: Void Amount 2300 / 2300 2950 / 2950 Other: Meal Dinner Percent of Meal Consumed 100% Feeding Ability Independent Weight 189 lb 8 oz Medical - DS: Data Labs on day of discharge: Labs from last 24 hours 03/24/18 03/24/18 03/24/18 03:33 03:33 03:33 WBC 9.3 RBC 3.85 L Hgb 10.8 L Hct 33.3 L MCV 86.6 MCH 28.0 MCHC 32.3 RDW 20.6 H Plt Count 179 MPV 7.8 Total Counted Pending Band Neutrophils % Not Reportable Platelet Estimate Pending RBC Morphology Pending PT 27.5 H INR 2.5 H Sodium 137 Potassium 4.6 Chloride 94 L Carbon Dioxide 34 H Anion Gap 9.0 BUN 52 H Creatinine 1.6 H GFR Calculation 30 Glucose 205 H Uric Acid 9.6 H Calcium 9.3 Phosphorus 3.8 Magnesium 1.8 Total Bilirubin 0.6 Direct Bilirubin < 0.2 GGT 93 H AST 18 ALT 32 Alkaline Phosphatase 79 Lactate Dehydrogenase 311 H Total Protein 6.0 Albumin 3.8 Globulin 2.2 Albumin/Globulin Ratio 1.7 Triglycerides 87 Preliminary micro results at discharge 03/22/18 16:00 Urine Culture - Preliminary Urine - Clean Void Mid-Stream Gram negative bacillus Medical - DS: A/P - Patient/Caregiver Discharge Instructions Activity: increase activity as tolerated Diet: Cardiac Additional Instructions: Follow-up PCP in 5 days Continue Coumadin dosing based on INR per primary care physician I recommend primary care physician to check INR, CBC BMP UA as a posthospital follow-up in 1 week. Antibiotics for 5 days oral cephalosporin for UTI Amlodipine 2.5 mg daily. PCP to optimize that pressure control resolved patient to prevent future episodes of congestive heart failure due to diastolic dysfunction from poorly controlled hypertension Continue aggressive bowel regimen to prevent constipation Continue fall precautions daily weights measurements and take additional 40 mg Lasix for 3 days if weight gain over 4 pounds over baseline or worsening shortness of breath and call primary care physician if inadequate response to Lasix All meals on chair sitting upright at 90 degrees to prevent aspiration Return to ER if worsening fever chills shortness of breath, diarrhea, bleeding Review risk and side effect profile of medications including antibiotics. Side effect may include mild to severe reaction including rash, diarrhea, cdiff and even which can be prevented by close follow-up with PCP and monitoring for side effects Portions of this chart may have been created with [employer] voice recognition software. Occasional wrong-word or ?sound-like? substitutions may have occurred due to the inherent limitations of voice recognition software. Please read the chart carefully and recognize, using context, where the substitutions have occurred. CC- PCP Prescriptions: amLODIPine BESYLATE [Norvasc] 2.5 mg PO DAILY #30 tab Cefdinir 300 mg PO BID #10 cap - Problem Maintenance (1) Congestive heart failure Status: Acute Qualifiers: Heart failure type: unspecified Heart failure chronicity: acute on chronic Qualified Code(s): I50.9 - Heart failure, unspecified - Follow up Plan Follow up with: Jazmin Bonner ARNP [Primary Care Provider] - 03/29/18 9:45 am (Please arrive 15 minutes early.) Disposition: Home, Self-Care Prognosis: Serious Rehab Potential: Fair I certify that the patient requires SNF services: No Overall status at discharge: patient is progressing back to baseline Medical - DS: Qual - VTE Deep Vein Thrombosis/Pulmonary Embolism Present on Admission: No
[2018-03-24 08:06] LABS: Anisocytosis 1+ (NONE SEEN); Eosinophils % (Manual) 2 % (0-7); Lymphocytes % 8 % (15-49); Monocytes % (Manual) 9 % (1-12); Platelet Estimate NORMAL (NORMAL); RBC Morphology ABNORM (NORMAL); Segmented Neutrophils % 81 % (38-78)
[2018-03-24] MEDS: INSULIN LISPRO 1 UNIT/0.01 ML UNIT SQ SCH (09:44)
[2018-03-24] MEDS: predniSONE 10 MG TABLET PO SCH (09:45)
[2018-03-24] MEDS: PANTOPRAZOLE 40 MG TABLET PO SCH (09:45)
[2018-03-24] MEDS: CARVEDILOL 6.25 MG TABLET PO SCH (09:45)
[2018-03-24] MEDS: LEVOTHYROXINE 25 MCG TABLET PO SCH (09:45)
[2018-03-24] MEDS: TAMSULOSIN 0.4 MG CAPSULE PO SCH (09:45)
[2018-03-24] MEDS: hydrALAZINE 10 MG TABLET PO SCH (09:46)
[2018-03-24] MEDS: buPROPion 150 MG TAB.SR.12H PO SCH (09:47)
[2018-03-24] MEDS: MULTIVIT,THER IRON,CA,FA & MIN 1 TABLET PO SCH (09:47)
[2018-03-24] MEDS: DOCUSATE SODIUM 100 MG CAPSULE PO SCH (09:47)
[2018-03-24] MEDS: MAGNESIUM OXIDE 400 MG TABLET PO SCH (09:47)
[2018-03-24] MEDS: INSULIN GLARGINE, HUMAN 1 UNIT/0.01 ML SQ SCH (09:47)
== END 2018-03-24 10:40 | disposition home or self-care (01) | DRG 291 ==
LOC: ED 12:59 → ICU 15:38
PROVIDERS: ADMIT Internal Medicine; ATTEND Internal Medicine